=== PATIENT | female | born 1990 | race Two or more races ===

== ENCOUNTER 2019-12-07 16:46 | Emergency (ER) | payer BC ==
[~2019-12-07] VITALS: Ht 170.2 cm; Wt 70.7 kg
--- NOTE | 2019-12-07 17:44 | PHYS DOC ---
Past History Past Medical History: Depression Past Surgical History: Other Additional Past Surgical Histo: IN 2017; WISDOM TEETH Alcohol Use: Occasionally Adult General Chief Complaint Chief Complaint: VAGINAL BLEEDING HPI HPI Patient is a female 2 para 0, 1 currently 5 weeks presenting to the ED today complaining of vaginal bleeding and that she states. Yesterday. Patient reports small amount of brownish bleeding, she states she does not have to wear a pad for this. She states is on the couch when she is voiding. Denies any abdominal pain or cramping. Denies any fever, denies any urgency frequency. Review of Systems Review of Systems Constitutional: Denies fever or chills [] Eyes: Denies change in visual acuity, redness, or eye pain [] HENT: Denies nasal congestion or sore throat [] Respiratory: Denies cough or shortness of breath [] Cardiovascular: No additional information not addressed in HPI [] GI: vag bleeding in . Denies abdominal pain, nausea, vomiting, bloody stools or diarrhea [] : Denies dysuria or hematuria [] Musculoskeletal: Denies back pain or joint pain [] Integument: Denies rash or skin lesions [] Neurologic: Denies headache, focal weakness or sensory changes [] All other systems were reviewed and found to be within normal limits, except as documented in this note. Allergies Allergies Allergies Coded Allergies Type Severity Reaction Last Updated Verified No Known Drug Allergies 12/07/19 No Physical Exam Physical Exam Constitutional: Well developed, well nourished, no acute distress, non-toxic appearance. [] HENT: Normocephalic, atraumatic, bilateral external ears normal, oropharynx moist, no oral exudates, nose normal. [] Eyes: PERRLA, EOMI, conjunctiva normal, no discharge. [] Neck: Normal range of motion, no tenderness, supple, no stridor. [] Cardiovascular:Heart rate regular rhythm, no murmur [] Lungs & Thorax: Bilateral breath sounds clear to auscultation [] Abdomen: Bowel sounds normal, soft, no tenderness, no masses, no pulsatile masses. [] Pelvic exam External pelvic appears normal, cervix is visualized, closed, no CMT, trace amount of brownish discharge noted in the vaginal vault, no adnexal tenderness Skin: Warm, dry, no erythema, no rash. [] Back: No tenderness, no CVA tenderness. [] Extremities: No tenderness, no cyanosis, no clubbing, ROM intact, no edema. [] Neurologic: Alert and oriented X 3, normal motor function, normal sensory function, no focal deficits noted. [] Psychologic: Affect normal, judgement normal, mood normal. [] Current Patient Data Vital Signs Vital Signs Date Time Temp Pulse Resp B/P (MAP) Pulse Ox O2 Delivery O2 Flow Rate FiO2 12/07/19 16:55 99.2 76 18 147/88 (107) 100 Room Air EKG EKG [] Radiology/Procedures Radiology/Procedures []PROCEDURE: OB <14 WKS W/TV Exam: Ultrasound OB less than 14 weeks Indication: Vaginal bleeding and Technique: Real-time grayscale and color Doppler images of the pelvis were obtained by the department mule driver. Comparisons: None FINDINGS: Uterus measures 7.0 x 4.8 x 4.5 cm. Within the endometrium there is a gestational sac with internal yolk sac. No pole is identified. Right ovary measures 4.5 x 2.4 x 2.0 cm. There is a hyperechoic cyst within the right ovary measuring up to 1.8 cm. Left ovary measures 3.0 x 2.0 x 1.8 cm. Vascular flow identified within the ovaries bilaterally. No free fluid. IMPRESSION: Gestational sac with internal yolk sac. No pole identified. Findings likely related to either an early IUP or failed IUP. Recommend correlation with serial beta hCG measurements and short-term follow-up ultrasound. Electronically signed by: Anam Gramajo MD (12/07/2019 6:09 PM) [facility] DICTATED AND SIGNED BY: ANAM GRAMAJO MD DATE: 12/07/191808 CC: BALA; ZANE COLEMAN APRN; PCP,NO ~ Heart Score Risk Factors: Risk Factors: DM, Current or recent (<one month) smoker, HTN, HLP, family history of CAD, obesity. Risk Scores: Risk Factors: DM, Current or recent (<one month) smoker, HTN, HLP, family history of CAD, obesity. Course & Med Decision Making Course & Med Decision Making Pertinent Labs and Imaging studies reviewed. (See chart for details) This is a 29-year-old female patient 2 para 0, 1 currently 5 weeks presenting to the ED today complaining of vaginal bleeding that began yesterday. Patient has trace amount of brownish discharge in the vaginal vault. Positive urine hcg. CBC, CMP, Wet prep no acute findings. Beta hcg 11,589 OB ultrasound-Gestational sac with internal yolk sac. No pole identified. Findingslikely related to either an early IUP or failed IUP. Recommend correlation with serial beta hCG measurements and short-term follow-up ultrasound. Blood type B- given Reina Was discharged to home, provided return precautions. Instructed to maintain bedrest/pelvic rest. She states she has an appointment with her CYLINDER PRESS OPERATOR APPRENTICE on Tuesday next week. Instructed to return to the ED at any point symptoms worsen. Dragon Disclaimer Dragon Disclaimer This electronic medical record was generated, in whole or in part, using a voice recognition dictation system. Departure Departure: Impression: Primary Impression: Threatened Additional Impression: Need for rhogam due to Rh negative mother Disposition: 01 DC HOME SELF CARE/HOMELESS Condition: STABLE Referrals: PCP,NO (PCP) Follow-up with your CYLINDER PRESS OPERATOR APPRENTICE on Tuesday as scheduled Patient Instructions: Threatened Miscarriage, [id number] Additional Instructions: You were evaluated in the emergency room for vaginal bleeding and . Your beta-hCG was 11,589, your blood type is B-, you were given RhoGam in the emergency room. Your white count is normal, your hemoglobin is 14.1 with a hematocrit of 41.8. Please maintain bedrest/pelvic rest, no strenuous activity, no sex until you are seen by your CYLINDER PRESS OPERATOR APPRENTICE. If you start soaking more than 1 feminine pad an hour please return to the emergency room. If you have uncont rolled pain please return to the emergency room. Follow up with your doctor on Tuesday as scheduled Problem Qualifiers ZANE COLEMAN APRN Dec 07, 2019 17:44
--- NOTE | 2019-12-07 18:12 | RAD ---
Exam: Ultrasound OB less than 14 weeks Indication: Vaginal bleeding and Technique: Real-time grayscale and color Doppler images of the pelvis were obtained by the department heading and priming tool setter. Comparisons: None FINDINGS: Uterus measures 7.0 x 4.8 x 4.5 cm. Within the endometrium there is a gestational sac with internal yolk sac. No pole is identified. Right ovary measures 4.5 x 2.4 x 2.0 cm. There is a hyperechoic cyst within the right ovary measuring up to 1.8 cm. Left ovary measures 3.0 x 2.0 x 1.8 cm. Vascular flow identified within the ovaries bilaterally. No free fluid. IMPRESSION: Gestational sac with internal yolk sac. No pole identified. Findings likely related to either an early IUP or failed IUP. Recommend correlation with serial beta hCG measurements and short-term follow-up ultrasound. Electronically signed by: Anam Kay MD (12/07/2019 6:09 PM) [facility]
[2019-12-07 18:18] LABS: BASO # 0.1 x10^3/uL (0.0-0.2); BASO % 1 % (0-3); EOS # 0.1 x10^3/uL (0.0-0.7); EOS % 1 % (0-3); HEMATOCRIT 41.8 % (36.0-47.0); HEMOGLOBIN 14.1 g/dL (12.0-15.5); LYMPH # 2.7 x10^3/uL (1.0-4.8); LYMPH % 25 % (24-48); MEAN CORPUSCULAR HEMOGLOBIN 33 pg (25-35); MEAN CORPUSCULAR HGB CONC 34 g/dL (31-37); MEAN CORPUSCULAR VOLUME 97 fL (79-100); MONO # 0.8 x10^3/uL (0.0-1.1); MONO % 7 % (0-9); NEUT # 7.3 x10^3uL (1.8-7.7); NEUT % 67 % (31-73); PLATELET COUNT 312 x10^3/uL (140-400); RED CELL DISTRIBUTION WIDTH 12.4 % (11.5-14.5)
[2019-12-07 18:23] LABS: GFR 65.6; POTASSIUM 3.4 mmol/L (3.5-5.1)
[2019-12-07 18:29] LABS: ALBUMIN 4.2 g/dL (3.4-5.0); ALBUMIN/GLOBULIN RATIO 1.2 (1.0-1.7); TOTAL BILIRUBIN 0.2 mg/dL (0.2-1.0); TOTAL PROTEIN 7.7 g/dL (6.4-8.2)
[2019-12-07 18:32] LABS: BILIRUBIN,URINE NEG (NEG); CLARITY,URINE CLEAR; COLOR,URINE YELLOW; GLUCOSE,URINE NEG (NEG); NITRITE,URINE NEG (NEG); RBC,URINE 0 /HPF (0-2); UROBILINOGEN,URINE 0.2 mg/dL (0.2 mg/dL); WBC,URINE 0 /HPF (0-4)
[2019-12-07 18:33] LABS: BACTERIA,URINE 0 /HPF (0-FEW); SQUAMOUS EPITHELIAL CELL,UR FEW /LPF
[2019-12-07 21:51] VITALS: BP 131/83
[2019-12-11 19:07] LABS: CHLAMYDIA PROBE Negative (Negative)
== END 2019-12-07 21:53 | disposition home or self-care (01) ==
LOC: ER 16:46
DX: O20.0 Threatened abortion (principal); F32.9 Major depressive disorder, single episode, unspecified; Z98.890 Other specified postprocedural states; Z3A.01 Less than 8 weeks gestation of pregnancy
CPT/HCPCS: 76801; 76817; 80053; 81001; 81025; 84702; 85025; 86850; 86900; 86901; 87491; 87591; 99284; J2791; Q0111; 36415